=== PATIENT | female | born 1965 | race Caucasian/White ===

== ENCOUNTER 2017-02-03 13:13 | Emergency (ER) | payer MEDICAID ==
[~2017-02-03] VITALS: Ht 172.7 cm; Wt 81.0 kg
[~2017-02-03 13:13] MED LIST: DICY20TA11 PO; FURO40TA5 PO; LEVE1000 PO; LORA0.5T2 PO; LOSA25TA3 PO; TRAM50TA3 PO
[2017-02-03] MEDS ORDERED: BACITRACIN ZINC OINT UDPKT TOP ONE (15:15)
[2017-02-03] MEDS ORDERED: LIDOCAINE HCL 1% 20ML VIAL (Pyxis) INJ MC ONE (15:15)
[2017-02-03] MEDS ORDERED: ACETAMINOPHEN 325MG TABLET PO ONE (15:45)
[2017-02-03 15:47] VITALS: BP 152/83
== END 2017-02-03 16:25 | disposition home or self-care (01) ==
LOC: ER 14:29
DX: L02.416 Cutaneous abscess of left lower limb (principal); K21.9 Gastro-esophageal reflux disease without esophagitis; I10 Essential (primary) hypertension; Z88.5 Allergy status to narcotic agent; Z79.899 Other long term (current) drug therapy; Z90.49 Acquired absence of other specified parts of digestive tract; Z98.51 Tubal ligation status
CPT/HCPCS: 10060; 99283; J3490; X7700; Z7610

== ENCOUNTER 2017-06-04 04:42 | Inpatient (IN) | payer MEDICAID ==
[~2017-06-04] VITALS: Ht 154.9 cm; Wt 102.1 kg
[2017-06-04] MEDS ORDERED: NITROGLYCERIN OINT 1GM/INCH UDPKT TD STA (05:10)
[2017-06-04 05:30] LABS: BASOPHILS % 0.1 % (0.0-2.0); EOSINOPHILS % 1.1 % (0.0-5.0); HEMATOCRIT. 37.6 % (36.0-48.0); HEMOGLOBIN. 12.9 g/dL (12.0-16.0); LYMPHOCYTES % 26.1 % (20.0-50.0); MEAN CORPUSCULAR HEMOGLOBIN 30.2 pg (28.0-32.0); MEAN CORPUSCULAR VOLUME 88.1 fL (81.0-99.0); MEAN PLATELET VOLUME 7.3 fl (7.4-10.4); MONOCYTES % 6.2 % (2.0-8.0); NEUTROPHILS % 66.5 % (40.0-76.0); PLATELET 64 x1000/uL (130-400); RED BLOOD CELL COUNT 4.27 mill/uL (4.2-5.4); RED CELL DISTRIBUTION WIDTH 14.2 % (11.6-14.6)
[2017-06-04 05:43] LABS: CARBON DIOXIDE 26 mEq/L (21-32); CHLORIDE 110 mEq/L (98-107); TROPONIN I < 0.02 ng/mL (0.00-0.04)
[2017-06-04] MEDS ORDERED: ONDANSETRON HCL 4MG/2ML VIAL IV ONE (05:45)
[2017-06-04] MEDS ORDERED: ACETAMINOPHEN 325MG TABLET PO ONE (08:30)
[2017-06-04] MEDS ORDERED: POTASSIUM CHLORIDE 20MEQ TABLET SR PO ONE (08:30)
[2017-06-04 12:00] VITALS: BP 142/79
[2017-06-04 12:30] VITALS: BP 142/79
[2017-06-04] MEDS ORDERED: LORAZEPAM 0.5MG TABLET PO PRN (12:30)
[2017-06-04] MEDS: LOSARTAN POTASSIUM 25 MG TABLET PO SCH (12:58)
[2017-06-04] MEDS: LEVETIRACETAM 500MG TABLET PO SCH ×2 (12:58→21:22)
[2017-06-04] MEDS: DICYCLOMINE HCL 20MG TABLET PO SCH ×2 (13:17→17:28)
[2017-06-04 15:11] LABS: CREATINE KINASE 78 IU/L (26-192); CREATINE KINASE MB FRACTION 0.5 ng/mL (0.5-3.6); TROPONIN I < 0.02 ng/mL (0.00-0.04)
[2017-06-04] MEDS: TRAMADOL 50MG TABLET PO PRN (15:41)
[2017-06-04 16:54] VITALS: BP 103/44
[2017-06-04] MEDS ORDERED: MEDICATION NOT ON FORMULARY EA (Levetiracetam (Keppra) 1 TAB) PO SCH (17:00)
[2017-06-04] MEDS: KETOROLAC 30MG/ML VIAL IM SCH (17:39)
[2017-06-04] MEDS ORDERED: CLONIDINE 0.2MG TABLET PO PRN ×2 (18:30)
[2017-06-04] MEDS ORDERED: SUMATRIPTAN SUCCINATE 6MG/0.5ML VIAL SUBCUT NR (18:30)
[2017-06-04 20:00] VITALS: BP 119/64
[2017-06-04 22:53] LABS: CREATINE KINASE 71 IU/L (26-192); CREATINE KINASE MB FRACTION < 0.5 ng/mL (0.5-3.6); TROPONIN I < 0.02 ng/mL (0.00-0.04)
[2017-06-05] VITALS: BP 125/60
[2017-06-05] MEDS: KETOROLAC 30MG/ML VIAL IM SCH ×2 (01:30→09:15)
[2017-06-05 04:00] VITALS: BP 114/61
[2017-06-05] MEDS: TRAMADOL 50MG TABLET PO PRN ×2 (04:21→18:44)
[2017-06-05 06:04] LABS: HEMATOCRIT 36.7 % (36.0-48.0); HEMOGLOBIN 12.7 g/dL (12.0-16.0); MEAN CORPUSCULAR HEMOGLOBIN 30.6 pg (28.0-32.0); MEAN CORPUSCULAR VOLUME 88.5 fL (81.0-99.0); PLATELET 70 x1000/uL (130-400); RED BLOOD CELL COUNT 4.14 mill/uL (4.2-5.4); RED CELL DISTRIBUTION WIDTH 14.6 % (11.6-14.6)
[2017-06-05 06:27] LABS: CARBON DIOXIDE 25 mEq/L (21-32); CHLORIDE 110 mEq/L (98-107); CREATINE KINASE 63 IU/L (26-192); LDL CHOLESTEROL 109 mg/dL (5-100)
[2017-06-05 06:35] LABS: CREATINE KINASE MB FRACTION < 0.5 ng/mL (0.5-3.6); HDL CHOLESTEROL 70 mg/dL (40-59); TROPONIN I < 0.02 ng/mL (0.00-0.04)
[2017-06-05 08:00] VITALS: BP 117/68
[2017-06-05] MEDS ORDERED: ASPIRIN 81MG TABLET PO SCH (09:00)
[2017-06-05] MEDS: LOSARTAN POTASSIUM 25 MG TABLET PO SCH (09:14)
[2017-06-05] MEDS: FUROSEMIDE 40MG TABLET PO SCH (09:14)
[2017-06-05] MEDS: LEVETIRACETAM 500MG TABLET PO SCH ×2 (09:14→21:23)
[2017-06-05] MEDS: DICYCLOMINE HCL 20MG TABLET PO SCH ×3 (09:15→17:36)
[2017-06-05] MEDS ORDERED: POTASSIUM CHLORIDE 20MEQ TABLET SR PO NR (09:38)
[2017-06-05 12:00] VITALS: BP 112/63
[2017-06-05 17:28] VITALS: BP 110/61
[2017-06-05 19:04] LABS: *AMPHETAMINES SCREEN URINE NEGATIVE (NEGATIVE); *BARBITURATES SCREEN URINE NEGATIVE (NEGATIVE); *BENZODIAZEPINES SCREEN URINE NEGATIVE (NEGATIVE); *COCAINE SCREEN URINE NEGATIVE (NEGATIVE); CANNABINOID URINE SCREEN NEGATIVE (NEGATIVE); METHADONE URINE SCREEN NEGATIVE (NEGATIVE); OPIATES URINE SCREEN NEGATIVE (NEGATIVE); PHENCYCLIDINE URINE SCREEN NEGATIVE (NEGATIVE)
[2017-06-05 20:00] VITALS: BP 139/60
[2017-06-06] VITALS: BP 116/60
[2017-06-06 04:00] VITALS: BP 114/54
[2017-06-06 05:20] LABS: BASOPHILS % 0.2 % (0.0-2.0); EOSINOPHILS % 1.4 % (0.0-5.0); HEMATOCRIT. 37.9 % (36.0-48.0); HEMOGLOBIN. 13.1 g/dL (12.0-16.0); LYMPHOCYTES % 23.2 % (20.0-50.0); MEAN CORPUSCULAR HEMOGLOBIN 30.3 pg (28.0-32.0); MEAN CORPUSCULAR VOLUME 87.7 fL (81.0-99.0); MEAN PLATELET VOLUME 7.9 fl (7.4-10.4); MONOCYTES % 5.5 % (2.0-8.0); NEUTROPHILS % 69.7 % (40.0-76.0); PLATELET 73 x1000/uL (130-400); RED BLOOD CELL COUNT 4.32 mill/uL (4.2-5.4); RED CELL DISTRIBUTION WIDTH 14.4 % (11.6-14.6)
[2017-06-06 05:59] LABS: CARBON DIOXIDE 28 mEq/L (21-32); CHLORIDE 108 mEq/L (98-107)
[2017-06-06 08:00] VITALS: BP 119/60
[2017-06-06] MEDS: LEVETIRACETAM 500MG TABLET PO SCH ×2 (08:26→21:25)
[2017-06-06] MEDS: LOSARTAN POTASSIUM 25 MG TABLET PO SCH (08:27)
[2017-06-06] MEDS: DICYCLOMINE HCL 20MG TABLET PO SCH ×3 (08:27→17:00)
[2017-06-06] MEDS: TRAMADOL 50MG TABLET PO PRN (08:27)
[2017-06-06] MEDS: FUROSEMIDE 40MG TABLET PO SCH (08:27)
[2017-06-06 12:00] VITALS: BP 119/70
[2017-06-06] MEDS ORDERED: ONDANSETRON HCL 4MG/2ML VIAL IV PRN (14:15)
[2017-06-06] MEDS ORDERED: MORPHINE SULFATE 2 MG/ML CPJ (NOT FOR IM USE) IV PRN (14:15)
[2017-06-06] MEDS ORDERED: DIPHENHYDRAMINE 50MG/ML VIAL IM PRN (14:30)
[2017-06-06] MEDS ORDERED: SUMATRIPTAN SUCCINATE 6MG/0.5ML VIAL SUBCUT NR ×2 (15:30→16:30)
[2017-06-06 16:00] VITALS: BP 109/59
[2017-06-06 20:00] VITALS: BP 104/49
[2017-06-06] MEDS: AMITRIPTYLINE 25MG TABLET PO SCH (21:25)
[2017-06-07] VITALS: BP 120/54
[2017-06-07 04:00] VITALS: BP 118/60
[2017-06-07 08:00] VITALS: BP 130/63
[2017-06-07] MEDS: LEVETIRACETAM 500MG TABLET PO SCH ×2 (08:53→21:32)
[2017-06-07] MEDS: LOSARTAN POTASSIUM 25 MG TABLET PO SCH (08:53)
[2017-06-07] MEDS: DICYCLOMINE HCL 20MG TABLET PO SCH ×3 (08:53→16:33)
[2017-06-07] MEDS: FUROSEMIDE 40MG TABLET PO SCH (08:53)
[2017-06-07 12:00] VITALS: BP 112/67
[2017-06-07] MEDS ORDERED: REGADENOSON 0.4 MG/5 ML IV ONE (13:30)
[2017-06-07 15:46] VITALS: BP 117/62
[2017-06-07 20:00] VITALS: BP 117/51
[2017-06-07] MEDS: AMITRIPTYLINE 25MG TABLET PO SCH (21:31)
[2017-06-08] VITALS: BP 118/53
[2017-06-08 05:45] LABS: BASOPHILS % 0.4 % (0.0-2.0); EOSINOPHILS % 1.2 % (0.0-5.0); HEMATOCRIT. 40.7 % (36.0-48.0); HEMOGLOBIN. 14.1 g/dL (12.0-16.0); LYMPHOCYTES % 26.5 % (20.0-50.0); MEAN CORPUSCULAR VOLUME 89.4 fL (81.0-99.0); MEAN PLATELET VOLUME 8.1 fl (7.4-10.4); MONOCYTES % 8.7 % (2.0-8.0); NEUTROPHILS % 63.2 % (40.0-76.0); PLATELET 69 x1000/uL (130-400); RED BLOOD CELL COUNT 4.55 mill/uL (4.2-5.4); RED CELL DISTRIBUTION WIDTH 14.2 % (11.6-14.6)
[2017-06-08 07:23] LABS: CARBON DIOXIDE 28 mEq/L (21-32); CHLORIDE 107 mEq/L (98-107)
[2017-06-08 07:41] VITALS: BP 133/95
[2017-06-08] MEDS ORDERED: CLONIDINE 0.1MG TABLET PO PRN (08:01)
[2017-06-08] MEDS ORDERED: REGADENOSON 0.4 MG/5 ML IV ONE (08:16)
[2017-06-08] MEDS: LOSARTAN POTASSIUM 25 MG TABLET PO SCH (09:31)
[2017-06-08] MEDS: LEVETIRACETAM 500MG TABLET PO SCH (09:31)
[2017-06-08] MEDS: FUROSEMIDE 40MG TABLET PO SCH (09:31)
[2017-06-08] MEDS: TRAMADOL 50MG TABLET PO PRN (09:32)
[2017-06-08] MEDS: DICYCLOMINE HCL 20MG TABLET PO SCH ×2 (09:32→13:02)
[2017-06-08 12:00] VITALS: BP 121/60
[2017-06-08 15:43] VITALS: BP 131/62
[2017-06-08 15:55] VITALS: BP 131/62
== END 2017-06-08 16:25 | disposition home or self-care (01) | DRG 199 ==
LOC: ER 04:42 → 7WST 06:06 → EDBEDREQ 06:27 → ENRESERV 10:54
PROVIDERS: ADMIT Internal Medicine; ATTEND Internal Medicine
DX: I16.0 Hypertensive urgency (principal); D69.6 Thrombocytopenia, unspecified; I11.9 Hypertensive heart disease without heart failure; E44.1 Mild protein-calorie malnutrition; I25.10 Atherosclerotic heart disease of native coronary artery without angina pectoris; K74.60 Unspecified cirrhosis of liver; G43.909 Migraine, unspecified, not intractable, without status migrainosus; G40.909 Epilepsy, unspecified, not intractable, without status epilepticus; B19.20 Unspecified viral hepatitis C without hepatic coma; F32.9 Major depressive disorder, single episode, unspecified; F41.9 Anxiety disorder, unspecified; E87.6 Hypokalemia; Z79.899 Other long term (current) drug therapy; Z88.6 Allergy status to analgesic agent; Z90.49 Acquired absence of other specified parts of digestive tract; M94.0 Chondrocostal junction syndrome [Tietze]
CPT/HCPCS: 36415; 70450; 71010; 78452; 80048; 80053; 80061; 80305; 82550; 82553; 83036; 84443; 84484; 85025; 85027; 85379; 93005; 93017; 93306; 93970; 96374; 99285; A9500; J1200; J1885; J2270; J2405; J2785; J3030

== ENCOUNTER 2017-08-05 10:12 | Emergency (ER) | payer MEDICAID ==
[~2017-08-05] VITALS: Ht 162.6 cm; Wt 77.0 kg
[2017-08-05] MEDS ORDERED: ENALAPRIL 2.5MG/2ML VIAL 2ML IV ONE (10:30)
[2017-08-05] MEDS ORDERED: ONDANSETRON HCL 4MG/2ML VIAL IV ONE (10:30)
[2017-08-05] MEDS ORDERED: PROPRANOLOL HCL 20MG TABLET PO ONE (10:30)
[2017-08-05 10:45] LABS: BASOPHILS % 0.2 % (0.0-2.0); EOSINOPHILS % 1.1 % (0.0-5.0); HEMATOCRIT. 40.2 % (36.0-48.0); LYMPHOCYTES % 23.8 % (20.0-50.0); MEAN CORPUSCULAR HEMOGLOBIN 31.7 pg (28.0-32.0); MEAN CORPUSCULAR VOLUME 90.8 fL (81.0-99.0); MONOCYTES % 6.7 % (2.0-8.0); NEUTROPHILS % 68.2 % (40.0-76.0); PLATELET 72 x1000/uL (130-400); RED BLOOD CELL COUNT 4.42 mill/uL (4.2-5.4); RED CELL DISTRIBUTION WIDTH 15.2 % (11.6-14.6)
[2017-08-05 10:53] LABS: INR 1.1; PARTIAL THROMBOPLASTIN TIME 28.9 sec (23.4-31.0); PROTHROMBIN TIME 11.7 sec (9.4-11.6)
[2017-08-05 11:03] LABS: CARBON DIOXIDE 30 mEq/L (21-32); CHLORIDE 112 mEq/L (98-107); CREATINE KINASE MB FRACTION 1.1 ng/mL (0.5-3.6); TROPONIN I < 0.02 ng/mL (0.00-0.04)
[2017-08-05] MEDS ORDERED: SODIUM CHLORIDE 0.9% 500 ML IV ONE (11:17)
[2017-08-05] MEDS ORDERED: MECLIZINE 25MG TABLET PO ONE (11:30)
[2017-08-05] MEDS ORDERED: DEXAMETHASONE 10 MG/ML VIAL IV ONE (11:30)
[2017-08-05 12:24] VITALS: BP 116/66
== END 2017-08-05 12:44 | disposition home or self-care (01) ==
LOC: ER 10:12
DX: I10 Essential (primary) hypertension (principal); Z88.5 Allergy status to narcotic agent
CPT/HCPCS: 36415; 70450; 71010; 80053; 82553; 83735; 83880; 84484; 85025; 85610; 85730; 93005; 96361; 96374; 96375; 99285; J1100; J2405; J7030; J7040; Z7610; J8597

== ENCOUNTER 2017-10-16 14:12 | Emergency (ER) | payer MEDICAID ==
[~2017-10-16] VITALS: Ht 154.9 cm; Wt 115.0 kg
[2017-10-16] MEDS ORDERED: SODIUM CHLORIDE 0.9% 1,000 ML IV ONE (17:55)
[2017-10-16] MEDS ORDERED: KETOROLAC 30MG/ML VIAL IV STA (17:55)
[2017-10-16 18:52] LABS: BASOPHILS % 0.5 % (0.0-2.0); HEMATOCRIT. 42.2 % (36.0-48.0); HEMOGLOBIN. 14.2 g/dL (12.0-16.0); INR 1.1; LYMPHOCYTES % 28.5 % (20.0-50.0); MEAN CORPUSCULAR HEMOGLOBIN 30.9 pg (28.0-32.0); MEAN CORPUSCULAR VOLUME 91.6 fL (81.0-99.0); MEAN PLATELET VOLUME 7.9 fl (7.4-10.4); MONOCYTES % 6.7 % (2.0-8.0); NEUTROPHILS % 63.3 % (40.0-76.0); PLATELET 95 x1000/uL (130-400); PROTHROMBIN TIME 11.8 sec (9.4-11.6); RED BLOOD CELL COUNT 4.61 mill/uL (4.2-5.4); RED CELL DISTRIBUTION WIDTH 14.7 % (11.6-14.6)
[2017-10-16 18:55] LABS: HCG SCREEN NEGATIVE
[2017-10-16 19:08] LABS: CARBON DIOXIDE 28 mEq/L (21-32); CHLORIDE 111 mEq/L (98-107)
[2017-10-16 19:58] LABS: CLARITY URINE CLOUDY (CLEAR); COLOR URINE DARK YELLOW (YELLOW); KETONES URINE TRACE (NEGATIVE); LEUKOCYTE ESTERASE URINE TRACE (NEGATIVE); NITRITE URINE NEGATIVE (NEGATIVE); OCCULT BLOOD URINE NEGATIVE (NEGATIVE); PROTEIN URINE NEGATIVE (NEGATIVE); SPECIFIC GRAVITY URINE 1.032 (1.005-1.030)
[2017-10-16] MEDS ORDERED: KETOROLAC 30MG/ML VIAL IV NR (22:15)
[2017-10-16 22:50] VITALS: BP 160/77
== END 2017-10-16 23:21 | disposition home or self-care (01) ==
LOC: ER 15:59
DX: R10.11 Right upper quadrant pain (principal); R11.0 Nausea; Z88.5 Allergy status to narcotic agent
CPT/HCPCS: 36415; 76705; 80053; 81001; 83690; 84703; 85025; 85610; 96374; 99285; J1885; J7030; Z7610

== ENCOUNTER 2018-04-04 20:21 | Emergency (ER) | payer MEDICAID ==
[~2018-04-04] VITALS: Ht 157.5 cm; Wt 114.0 kg
[2018-04-04] MEDS ORDERED: PROCHLORPERAZINE 10MG/2ML VIAL IV ONE (22:30)
[2018-04-04] MEDS ORDERED: DEXAMETHASONE 10 MG/ML VIAL IV ONE (22:30)
[2018-04-04] MEDS ORDERED: KETOROLAC 30MG/ML VIAL IV ONE (22:30)
[2018-04-04] MEDS ORDERED: LORAZEPAM 2MG/ML CPJ IV ONE (22:30)
[2018-04-04] MEDS ORDERED: DIPHENHYDRAMINE 50MG/ML VIAL IV ONE (22:30)
[2018-04-04 22:51] LABS: HEMATOCRIT 40.8 % (36.0-48.0); HEMOGLOBIN 14.2 g/dL (12.0-16.0); MEAN CORPUSCULAR VOLUME 88.8 fL (81.0-99.0); PLATELET 83 x1000/uL (130-400); RED CELL DISTRIBUTION WIDTH 14.4 % (11.6-14.6)
[2018-04-04 22:53] LABS: CHLORIDE 113 mEq/L (98-107)
[2018-04-05] MEDS ORDERED: POTASSIUM CHLORIDE 20MEQ TABLET SR PO NR (00:45)
[2018-04-05 01:12] VITALS: BP 141/80
== END 2018-04-05 01:37 | disposition home or self-care (01) ==
LOC: ER 20:49
DX: R51 Headache (principal); R56.9 Unspecified convulsions; I10 Essential (primary) hypertension; F99 Mental disorder, not otherwise specified; Z88.6 Allergy status to analgesic agent; Z79.899 Other long term (current) drug therapy; Z98.51 Tubal ligation status; Z90.49 Acquired absence of other specified parts of digestive tract
CPT/HCPCS: 36415; 70450; 80053; 82542; 85027; 96374; 96375; 99285; J0780; J1100; J1200; J1885; J2060

== ENCOUNTER 2018-10-27 18:17 | Emergency (ER) | payer MEDICAID ==
[~2018-10-27] VITALS: Ht 154.9 cm; Wt 110.0 kg
[2018-10-27 20:17] LABS: CLARITY URINE CLEAR (CLEAR); COLOR URINE DARK YELLOW (YELLOW); KETONES URINE TRACE (NEGATIVE); LEUKOCYTE ESTERASE URINE TRACE (NEGATIVE); NITRITE URINE NEGATIVE (NEGATIVE); OCCULT BLOOD URINE 3+ (NEGATIVE); PH URINE 5.5 (4.5-8.0); PROTEIN URINE NEGATIVE (NEGATIVE); SPECIFIC GRAVITY URINE 1.027 (1.005-1.030)
[2018-10-27] MEDS ORDERED: ONDANSETRON 4MG ODT PO STA (20:35)
[2018-10-27] MEDS ORDERED: KETOROLAC 30MG/ML VIAL IM ONE (20:45)
[2018-10-27] MEDS ORDERED: ONDANSETRON 4MG ODT PO ONE (20:45)
[2018-10-27 21:58] LABS: BASOPHILS % 0.1 % (0.0-2.0); EOSINOPHILS % 0.8 % (0.0-5.0); HEMATOCRIT. 42.3 % (36.0-48.0); HEMOGLOBIN. 14.4 g/dL (12.0-16.0); LYMPHOCYTES % 19.8 % (20.0-50.0); MEAN CORPUSCULAR HEMOGLOBIN 31.2 pg (28.0-32.0); MEAN CORPUSCULAR VOLUME 91.5 fL (81.0-99.0); MEAN PLATELET VOLUME 7.4 fl (7.4-10.4); MONOCYTES % 6.2 % (2.0-8.0); NEUTROPHILS % 73.1 % (40.0-76.0); PLATELET 93 x1000/uL (130-400); RED BLOOD CELL COUNT 4.62 mill/uL (4.2-5.4); RED CELL DISTRIBUTION WIDTH 15.1 % (11.6-14.6)
[2018-10-27 22:01] LABS: CHLORIDE 114 mEq/L (98-107)
[2018-10-27 23:31] VITALS: BP 125/62
== END 2018-10-27 23:37 | disposition home or self-care (01) ==
LOC: ER 18:17
DX: N30.00 Acute cystitis without hematuria (principal); R10.9 Unspecified abdominal pain; E78.00 Pure hypercholesterolemia, unspecified; I10 Essential (primary) hypertension; R56.9 Unspecified convulsions; Z88.5 Allergy status to narcotic agent; Z90.49 Acquired absence of other specified parts of digestive tract
CPT/HCPCS: 36415; 71045; 74176; 80053; 81003; 83690; 85025; 96372; 99284; J1885; Q0162

== ENCOUNTER 2019-01-14 22:35 | Emergency (ER) | payer MEDICAID ==
[~2019-01-14] VITALS: Ht 167.6 cm; Wt 82.0 kg
[2019-01-14] MEDS ORDERED: LEVETIRACETAM 500MG TABLET PO ONE (23:15)
[2019-01-14] MEDS ORDERED: BUTALBITAL/ACETAMINOPHEN/CAFFEINE 50/325/40MG TABLET PO ONE (23:15)
[2019-01-14] MEDS ORDERED: KETOROLAC 30MG/ML VIAL IV ONE (23:15)
[2019-01-14] MEDS ORDERED: METOCLOPRAMIDE HCL 10MG/2ML VIAL IV ONE (23:15)
[2019-01-15 02:00] VITALS: BP 136/70
== END 2019-01-15 02:04 | disposition home or self-care (01) ==
LOC: ER 23:20
DX: R51 Headache (principal); R53.1 Weakness; I10 Essential (primary) hypertension; Z79.899 Other long term (current) drug therapy; Z88.6 Allergy status to analgesic agent
CPT/HCPCS: 96374; 96375; 99283; J1885; J2765

== ENCOUNTER 2019-06-12 17:04 | Emergency (ER) | payer MEDICAID, OTHER ==
[~2019-06-12] VITALS: Ht 167.6 cm; Wt 130.0 kg
[2019-06-12] MEDS ORDERED: SODIUM CHLORIDE 0.9% 1,000 ML IV ONE (20:15)
[2019-06-12 20:40] LABS: CLARITY URINE CLOUDY (CLEAR); COLOR URINE DARK YELLOW (YELLOW); KETONES URINE TRACE (NEGATIVE); LEUKOCYTE ESTERASE URINE 1+ (NEGATIVE); NITRITE URINE NEGATIVE (NEGATIVE); OCCULT BLOOD URINE 3+ (NEGATIVE); PROTEIN URINE 2+ (NEGATIVE); SPECIFIC GRAVITY URINE 1.031 (1.005-1.030)
[2019-06-12 21:22] LABS: BASOPHILS % 0.1 % (0.0-2.0); EOSINOPHILS % 0.7 % (0.0-5.0); HEMATOCRIT. 40.8 % (36.0-48.0); HEMOGLOBIN. 14.3 g/dL (12.0-16.0); MEAN CORPUSCULAR HEMOGLOBIN 32.2 pg (28.0-32.0); MEAN CORPUSCULAR VOLUME 92.1 fL (81.0-99.0); MEAN PLATELET VOLUME 7.5 fl (7.4-10.4); MONOCYTES % 6.1 % (2.0-8.0); NEUTROPHILS % 76.1 % (40.0-76.0); PLATELET 79 x1000/uL (130-400); RED BLOOD CELL COUNT 4.44 mill/uL (4.2-5.4); RED CELL DISTRIBUTION WIDTH 14.8 % (11.6-14.6)
[2019-06-12 21:26] LABS: CHLORIDE 113 mEq/L (98-107)
[2019-06-12 23:06] VITALS: BP 156/66
== END 2019-06-12 23:47 | disposition home or self-care (01) ==
LOC: ER 17:04
DX: N93.8 Other specified abnormal uterine and vaginal bleeding (principal); N39.0 Urinary tract infection, site not specified; D69.6 Thrombocytopenia, unspecified; K74.69 Other cirrhosis of liver; G40.909 Epilepsy, unspecified, not intractable, without status epilepticus; I10 Essential (primary) hypertension; Z88.5 Allergy status to narcotic agent
CPT/HCPCS: 36415; 76830; 76856; 80053; 81003; 81025; 85025; 86850; 86900; 86901; 99284; J7030; Z7610

== ENCOUNTER 2021-04-07 15:11 | Emergency (ER) | payer MEDICAID ==
[~2021-04-07] VITALS: Ht 172.7 cm; Wt 116.0 kg
[2021-04-07] MEDS ORDERED: FUROSEMIDE 20MG/2ML VIAL IVP ONE (17:00)
[2021-04-07] MEDS ORDERED: CEPHALEXIN 250MG CAPSULE PO ONE (17:00)
[2021-04-07 17:14] LABS: BASOPHILS % 0.1 % (0.0-2.0); EOSINOPHILS % 0.3 % (0.0-5.0); HEMATOCRIT. 40.2 % (36.0-48.0); HEMOGLOBIN. 14.3 g/dL (12.0-16.0); LYMPHOCYTES % 7.8 % (20.0-50.0); MEAN CORPUSCULAR HEMOGLOBIN 31.5 pg (28.0-32.0); MEAN CORPUSCULAR VOLUME 88.8 fL (81.0-99.0); MEAN PLATELET VOLUME 7.3 fl (7.4-10.4); MONOCYTES % 5.7 % (2.0-8.0); NEUTROPHILS % 86.1 % (40.0-76.0); PLATELET 102 x1000/uL (130-400); RED BLOOD CELL COUNT 4.52 mill/uL (4.2-5.4); RED CELL DISTRIBUTION WIDTH 14.4 % (11.6-14.6)
[2021-04-07 17:22] LABS: CHLORIDE 109 mEq/L (98-107)
[2021-04-07 17:33] LABS: CLARITY URINE CLOUDY (CLEAR); COLOR URINE YELLOW (YELLOW); KETONES URINE NEGATIVE (NEGATIVE); LEUKOCYTE ESTERASE URINE NEGATIVE (NEGATIVE); NITRITE URINE NEGATIVE (NEGATIVE); OCCULT BLOOD URINE 1+ (NEGATIVE); PROTEIN URINE NEGATIVE (NEGATIVE); SPECIFIC GRAVITY URINE 1.015 (1.005-1.030)
[2021-04-07] MEDS ORDERED: CEPH500T MT (21:58)
[2021-04-07 23:00] VITALS: BP 136/76
[2021-04-07] MEDS ORDERED: ACETAMINOPHEN 325MG TABLET PO ONE (23:00)
== END 2021-04-08 00:35 | disposition home or self-care (01) ==
LOC: ER 15:11
DX: L03.116 Cellulitis of left lower limb (principal); L03.115 Cellulitis of right lower limb; I10 Essential (primary) hypertension; Z79.899 Other long term (current) drug therapy
CPT/HCPCS: 36415; 71045; 80053; 81003; 81025; 83880; 84484; 85025; 96374; 99284; J1940; A4315

== ENCOUNTER 2022-05-21 03:10 | Emergency (ER) | payer MEDICAID ==
[~2022-05-21 03:10] MED LIST changes: +CEPH500T MT; -DICY20TA11 PO; +DICY20TA2 PO
[2022-05-21] MEDS ORDERED: ONDANSETRON HCL 4MG/2ML INJ ONE (09:21)
[2022-05-21] MEDS ORDERED: FAMOTIDINE 20MG/2ML VIAL IV ONE (09:24)
[2022-05-21 13:06] LABS: BASOPHILS % 0.2 % (0.0-2.0); EOSINOPHILS % 1.1 % (0.0-5.0); HEMATOCRIT. 34.6 % (36.0-48.0); HEMOGLOBIN. 11.9 g/dL (12.0-16.0); LYMPHOCYTES % 22.1 % (20.0-50.0); MEAN CORPUSCULAR HEMOGLOBIN 30.9 pg (28.0-32.0); MEAN CORPUSCULAR VOLUME 89.9 fL (81.0-99.0); MEAN PLATELET VOLUME 7.2 fl (7.4-10.4); NEUTROPHILS % 68.6 % (40.0-76.0); PLATELET 89 x1000/uL (130-400); RED BLOOD CELL COUNT 3.84 mill/uL (4.2-5.4); RED CELL DISTRIBUTION WIDTH 14.9 % (11.6-14.6)
[2022-05-21 13:38] LABS: CHLORIDE 115 mEq/L (98-107)
== END 2022-05-21 14:53 | disposition home or self-care (01) ==
LOC: ER 03:10
DX: R10.9 Unspecified abdominal pain (principal); R55 Syncope and collapse; I10 Essential (primary) hypertension; R56.9 Unspecified convulsions; Z88.6 Allergy status to analgesic agent
CPT/HCPCS: 36415; 74176; 80053; 83690; 85025; 96374; 99284; J2405; J3490

== ENCOUNTER 2022-10-31 01:14 | Inpatient (IN) | payer MEDICARE, MEDICAID ==
[~2022-10-31] VITALS: Ht 152.4 cm; Wt 127.0 kg
[2022-10-31] MEDS ORDERED: PANTOPRAZOLE 40MG DR TABLET PO ONE (03:45)
[2022-10-31] MEDS ORDERED: HYDROCODONE/ACETAMINOPHEN 5/325MG TABLET PO ONE (03:45)
[2022-10-31 04:11] LABS: BASOPHILS % 0.2 % (0.0-2.0); EOSINOPHILS % 0.7 % (0.0-5.0); HEMATOCRIT. 36.9 % (36.0-48.0); HEMOGLOBIN. 12.9 g/dL (12.0-16.0); LYMPHOCYTES % 13.6 % (20.0-50.0); MEAN CORPUSCULAR HEMOGLOBIN 30.6 pg (28.0-32.0); MEAN CORPUSCULAR VOLUME 87.7 fL (81.0-99.0); MEAN PLATELET VOLUME 7.1 fl (7.4-10.4); MONOCYTES % 5.1 % (2.0-8.0); NEUTROPHILS % 80.4 % (40.0-76.0); PLATELET 94 x1000/uL (130-400); RED CELL DISTRIBUTION WIDTH 14.3 % (11.6-14.6)
[2022-10-31 04:16] LABS: CHLORIDE 112 mEq/L (98-107)
[2022-10-31] MEDS ORDERED: PROT20 MT (05:56)
[2022-10-31 08:00] VITALS: BP 148/76
[2022-10-31] MEDS ORDERED: POTASSIUM CHLORIDE 20MEQ TABLET SR PO NR (08:45)
[2022-10-31] MEDS: ACETAMINOPHEN 325MG TABLET PO PRN (10:57)
[2022-10-31 11:35] LABS: HEMATOCRIT 34.6 % (36.0-48.0); HEMOGLOBIN 11.6 g/dL (12.0-16.0)
[2022-10-31 12:00] VITALS: BP 123/58
[2022-10-31 16:00] VITALS: BP 98/35
[2022-10-31] MEDS ORDERED: LORAZEPAM 2MG/ML CPJ IV PRN (20:00)
[2022-10-31] MEDS ORDERED: NALOXONE HCL 0.4MG/ML VIAL IV PRN (20:45)
[2022-10-31] MEDS: PANTOPRAZOLE SODIUM 40 MG/VIAL IV SCH ×2 (21:00→21:35)
[2022-10-31] MEDS: LEVETIRACETAM 500MG TABLET PO SCH (21:35)
[2022-11-01 04:00] VITALS: BP 127/64
[2022-11-01] MEDS: ACETAMINOPHEN 325MG TABLET PO PRN ×2 (06:18→17:24)
[2022-11-01 08:00] VITALS: BP 112/52
[2022-11-01] MEDS ORDERED: *PATIENT'S OWN MEDICATION STORAGE XX SCH (08:00)
[2022-11-01 08:12] LABS: BASOPHILS % 0.2 % (0.0-2.0); EOSINOPHILS % 0.9 % (0.0-5.0); HEMATOCRIT. 32.8 % (36.0-48.0); HEMOGLOBIN. 11.4 g/dL (12.0-16.0); LYMPHOCYTES % 25.8 % (20.0-50.0); MEAN CORPUSCULAR HEMOGLOBIN 30.8 pg (28.0-32.0); MEAN CORPUSCULAR VOLUME 88.8 fL (81.0-99.0); MEAN PLATELET VOLUME 7.5 fl (7.4-10.4); MONOCYTES % 6.7 % (2.0-8.0); NEUTROPHILS % 66.4 % (40.0-76.0); PLATELET 81 x1000/uL (130-400); RED BLOOD CELL COUNT 3.69 mill/uL (4.2-5.4); RED CELL DISTRIBUTION WIDTH 14.4 % (11.6-14.6)
[2022-11-01 08:22] LABS: CHLORIDE 113 mEq/L (98-107)
[2022-11-01] MEDS: LEVETIRACETAM 500MG TABLET PO SCH ×2 (09:35→21:34)
[2022-11-01] MEDS: PANTOPRAZOLE SODIUM 40 MG/VIAL IV SCH ×2 (09:35→21:32)
[2022-11-01 12:00] VITALS: BP 132/56
[2022-11-01] MEDS: HYDROCODONE/ACETAMINOPHEN 5/325MG TABLET PO PRN ×2 (14:43→22:05)
[2022-11-01 15:56] VITALS: BP 123/60
[2022-11-01 20:00] VITALS: BP 129/48
[2022-11-02] VITALS: BP 132/51
[2022-11-02] MEDS: HYDROCODONE/ACETAMINOPHEN 5/325MG TABLET PO PRN ×3 (04:00→21:08)
[2022-11-02 08:00] VITALS: BP 107/77
[2022-11-02] MEDS: LEVETIRACETAM 500MG TABLET PO SCH ×2 (09:00→20:57)
[2022-11-02] MEDS: PANTOPRAZOLE SODIUM 40 MG/VIAL IV SCH ×2 (09:00→20:58)
[2022-11-02] MEDS: FUROSEMIDE 40MG/4ML VIAL IVP SCH (11:15)
[2022-11-02 12:00] VITALS: BP 120/57
[2022-11-02] MEDS: FLUDROCORTISONE ACETATE 0.1MG TABLET PO SCH (12:05)
[2022-11-02 14:49] LABS: CLARITY URINE CLEAR (CLEAR); COLOR URINE YELLOW (YELLOW); KETONES URINE NEGATIVE (NEGATIVE); LEUKOCYTE ESTERASE URINE NEGATIVE (NEGATIVE); NITRITE URINE NEGATIVE (NEGATIVE); OCCULT BLOOD URINE NEGATIVE (NEGATIVE); PH URINE 5.5 (4.5-8.0); PROTEIN URINE NEGATIVE (NEGATIVE); SPECIFIC GRAVITY URINE 1.008 (1.005-1.030)
[2022-11-02 16:00] VITALS: BP 121/58
[2022-11-02 20:00] VITALS: BP 125/52
[2022-11-03] VITALS: BP 109/49
[2022-11-03] MEDS: ONDANSETRON HCL 4MG/2ML INJ IV PRN ×2 (01:39→09:04)
[2022-11-03] MEDS: ACETAMINOPHEN 325MG TABLET PO PRN ×4 (01:39→23:29)
[2022-11-03 04:00] VITALS: BP 95/48
[2022-11-03 08:00] VITALS: BP 119/58
[2022-11-03] MEDS: FLUDROCORTISONE ACETATE 0.1MG TABLET PO SCH (08:43)
[2022-11-03] MEDS: FUROSEMIDE 40MG/4ML VIAL IVP SCH (08:43)
[2022-11-03] MEDS: PANTOPRAZOLE SODIUM 40 MG/VIAL IV SCH ×2 (08:43→20:30)
[2022-11-03] MEDS: LEVETIRACETAM 500MG TABLET PO SCH ×2 (08:43→21:49)
[2022-11-03 12:00] VITALS: BP 107/46
[2022-11-03] MEDS ORDERED: LACTULOSE 20G/30ML UDC PO STA (13:18)
[2022-11-03] MEDS ORDERED: NA PHOS,M-B/NA PHOS,DI-BA ENEMA 118ML PR NR (13:30)
[2022-11-03] MEDS ORDERED: BISACODYL 10MG SUPP PR PRN (13:30)
[2022-11-03 16:00] VITALS: BP 141/48
[2022-11-03 20:00] VITALS: BP 122/53
[2022-11-03] MEDS: LACTULOSE 20G/30ML UDC PO SCH (20:28)
[2022-11-04] VITALS: BP 131/61
[2022-11-04 04:00] VITALS: BP 108/52
[2022-11-04] MEDS: LACTULOSE 20G/30ML UDC PO SCH ×2 (04:00)
[2022-11-04 08:00] VITALS: BP 139/55
[2022-11-04] MEDS: FUROSEMIDE 40MG/4ML VIAL IVP SCH (08:35)
[2022-11-04] MEDS: PANTOPRAZOLE SODIUM 40 MG/VIAL IV SCH ×2 (08:35→23:13)
[2022-11-04] MEDS: FLUDROCORTISONE ACETATE 0.1MG TABLET PO SCH (08:36)
[2022-11-04] MEDS: LEVETIRACETAM 500MG TABLET PO SCH ×2 (08:36→23:13)
[2022-11-04] MEDS ORDERED: NA PHOS,M-B/NA PHOS,DI-BA ENEMA 118ML PR PRN (09:00)
[2022-11-04] MEDS: HYDROCODONE/ACETAMINOPHEN 5/325MG TABLET PO PRN ×2 (10:58→17:03)
[2022-11-04] MEDS: ONDANSETRON HCL 4MG/2ML INJ IV PRN (10:59)
[2022-11-04] MEDS ORDERED: MIDODRINE HCL 5MG TABLET PO SCH (11:15)
[2022-11-04] MEDS ORDERED: LORAZEPAM 2MG/ML CPJ IV PRN (11:45)
[2022-11-04 12:00] VITALS: BP 102/31
[2022-11-04] MEDS: MIDODRINE HCL 5MG TABLET PO SCH ×2 (13:00→17:00)
[2022-11-04 16:00] VITALS: BP 119/47
[2022-11-04 20:00] VITALS: BP 121/44
[2022-11-04] MEDS ORDERED: NAPROXEN 250MG TABLET PO PRN (21:15)
[2022-11-05 02:55] VITALS: BP 99/33
[2022-11-05 04:00] VITALS: BP 111/54
[2022-11-05 08:00] VITALS: BP 111/43
[2022-11-05] MEDS: MIDODRINE HCL 5MG TABLET PO SCH ×3 (09:00→18:13)
[2022-11-05] MEDS: FUROSEMIDE 40MG/4ML VIAL IVP SCH (09:00)
[2022-11-05] MEDS: ZONISAMIDE 100MG CAPSULE PO SCH (09:00)
[2022-11-05] MEDS: PANTOPRAZOLE SODIUM 40 MG/VIAL IV SCH ×2 (09:00→20:44)
[2022-11-05] MEDS: LEVETIRACETAM 500MG TABLET PO SCH ×2 (09:01→20:28)
[2022-11-05] MEDS: DIVALPROEX SODIUM 500MG DR TABLET PO SCH ×2 (09:01→20:28)
[2022-11-05] MEDS: FLUDROCORTISONE ACETATE 0.1MG TABLET PO SCH (09:01)
[2022-11-05] MEDS: ACETAMINOPHEN 325MG TABLET PO PRN (10:36)
[2022-11-05 12:00] VITALS: BP 117/57
[2022-11-05] MEDS: HYDROCODONE/ACETAMINOPHEN 5/325MG TABLET PO PRN ×2 (13:50→20:36)
[2022-11-05 16:00] VITALS: BP 104/32
[2022-11-05 17:59] LABS: BASOPHILS % 0.4 % (0.0-2.0); CHLORIDE 105 mEq/L (98-107); EOSINOPHILS % 1.7 % (0.0-5.0); HEMATOCRIT. 36.3 % (36.0-48.0); HEMOGLOBIN. 12.4 g/dL (12.0-16.0); LYMPHOCYTES % 23.3 % (20.0-50.0); MEAN CORPUSCULAR HEMOGLOBIN 30.3 pg (28.0-32.0); MEAN CORPUSCULAR VOLUME 88.5 fL (81.0-99.0); MEAN PLATELET VOLUME 7.8 fl (7.4-10.4); MONOCYTES % 8.7 % (2.0-8.0); NEUTROPHILS % 65.9 % (40.0-76.0); PLATELET 106 x1000/uL (130-400)
[2022-11-05 20:00] VITALS: BP 98/27
[2022-11-06] VITALS: BP 101/44
[2022-11-06 04:00] VITALS: BP 122/57
[2022-11-06 08:00] VITALS: BP 106/52
[2022-11-06 08:20] VITALS: BP 106/52
[2022-11-06] MEDS: DIVALPROEX SODIUM 500MG DR TABLET PO SCH (08:54)
[2022-11-06] MEDS: FLUDROCORTISONE ACETATE 0.1MG TABLET PO SCH (08:54)
[2022-11-06] MEDS: LEVETIRACETAM 500MG TABLET PO SCH (08:54)
[2022-11-06] MEDS: ZONISAMIDE 100MG CAPSULE PO SCH (08:55)
[2022-11-06] MEDS: FUROSEMIDE 40MG/4ML VIAL IVP SCH (09:04)
[2022-11-06] MEDS: ONDANSETRON HCL 4MG/2ML INJ IV PRN (09:04)
[2022-11-06] MEDS: MIDODRINE HCL 5MG TABLET PO SCH ×2 (09:04→14:13)
[2022-11-06] MEDS: PANTOPRAZOLE SODIUM 40 MG/VIAL IV SCH (09:04)
[2022-11-06] MEDS: ACETAMINOPHEN 325MG TABLET PO PRN (10:06)
[2022-11-06 12:00] VITALS: BP 118/59
[2022-11-06 14:54] VITALS: BP 118/59
[2022-11-07] MEDS ORDERED: ZONISAMIDE 100MG CAPSULE PO SCH (09:00)
[2022-11-12 09:07] LABS: BARBITURATE SCREEN Negative ug/mL (Cutoff:0.1); BENZODIAZEPINE SCREEN Negative ng/mL (Cutoff:20); PHENCYCLIDINE SCREEN Negative ng/mL (Cutoff:8)
== END 2022-11-06 16:28 | DRG 377 ==
LOC: ER 01:14 → 6EST 06:13 → EDBEDREQTM 06:19 → EDBEDREQ 06:19
PROVIDERS: ADMIT Internal Medicine; ATTEND Internal Medicine
DX: K92.2 Gastrointestinal hemorrhage, unspecified (principal); G93.41 Metabolic encephalopathy; Z68.43 Body mass index [BMI] 50.0-59.9, adult; G40.909 Epilepsy, unspecified, not intractable, without status epilepticus; K74.60 Unspecified cirrhosis of liver; E87.6 Hypokalemia; M25.561 Pain in right knee; I10 Essential (primary) hypertension; R04.0 Epistaxis; D69.6 Thrombocytopenia, unspecified; E66.01 Morbid (severe) obesity due to excess calories; D64.9 Anemia, unspecified; I95.1 Orthostatic hypotension; Z20.822 Contact with and (suspected) exposure to COVID-19; S82.891A Other fracture of right lower leg, initial encounter for closed fracture; G89.4 Chronic pain syndrome; R53.81 Other malaise; M17.11 Unilateral primary osteoarthritis, right knee; M48.061 Spinal stenosis, lumbar region without neurogenic claudication; Y99.0 Civilian activity done for income or pay; Z88.5 Allergy status to narcotic agent; M19.90 Unspecified osteoarthritis, unspecified site
CPT/HCPCS: 36415; 70551; 71101; 72128; 72131; 73562; 73590; 73610; 73700; 76705; 80048; 80053; 80307; 80320; 81003; 82140; 82962; 84443; 85014; 85018; 85025; 87340; 87426; 92610; 97162; 97166; 97530; 99285; C1893; C9113; J1940; J2060; J2405; G0480

== ENCOUNTER 2023-09-23 17:37 | Inpatient (IN) | payer MEDICARE, MEDICAID ==
[~2023-09-23] VITALS: Ht 154.9 cm; Wt 125.2 kg
[~2023-09-23 17:37] MED LIST changes: -CEPH500T MT; +LACT10SO7 PO; +LOSA-412 PO; -LOSA25TA3 PO; +PROT20 MT
[2023-09-23] MEDS ORDERED: LEVETIRACETAM 500MG PREMIX 100 ML IV ONE ×2 (18:00)
[2023-09-23 18:47] LABS: BASOPHILS % 0.1 % (0.0-2.0); EOSINOPHILS % 0.6 % (0.0-5.0); HEMOGLOBIN. 12.4 g/dL (12.0-16.0); MEAN CORPUSCULAR HEMOGLOBIN 28.7 pg (28.0-32.0); MEAN CORPUSCULAR HGB CONC 33.6 g/dL (31.0-37.0); MEAN CORPUSCULAR VOLUME 85.6 fL (81.0-99.0); MEAN PLATELET VOLUME 7.4 fl (7.4-10.4); MONOCYTES % 8.1 % (2.0-8.0); NEUTROPHILS % 76.2 % (40.0-76.0); PLATELET 98 x1000/uL (130-400); RED BLOOD CELL COUNT 4.32 mill/uL (4.2-5.4); RED CELL DISTRIBUTION WIDTH 15.6 % (11.6-14.6); WHITE BLOOD COUNT 4.3 x1000/uL (4.5-11.0)
[2023-09-23 19:05] LABS: AMMONIA 57 uMol/L (<32)
[2023-09-23 19:06] LABS: ALANINE AMINOTRANSFERASE 11 IU/L (10-49); ALBUMIN 3.6 g/dL (3.2-4.8); ASPARTATE AMINOTRANSFERASE 26 IU/L (<34); BILIRUBIN TOTAL 0.8 mg/dL (0.1-1.0); CALCIUM 9.3 mg/dL (8.7-10.4); CARBON DIOXIDE 27 mEq/L (21-32); CHLORIDE 111 mEq/L (98-107); CREATINE KINASE 60 IU/L (34-145); CREATININE 0.8 mg/dL (0.6-1.0); GLUCOSE 93 mg/dL (70-105); POTASSIUM 3.4 mEq/L (3.5-5.1); PROTEIN TOTAL 6.3 g/dL (6.0-8.3); SODIUM 145 mEq/L (136-145); UREA NITROGEN BLOOD 10 mg/dL (9-23)
[2023-09-23 19:15] LABS: TROPONIN I HIGH SENSITIVITY < 4 ng/L (3.0-34)
[2023-09-23 22:25] VITALS: BP 147/66; PULSE 73; RESP 20; TEMP 98.9
[2023-09-24] VITALS: BP 127/52; PULSE 67; RESP 20; TEMP 97.1
[2023-09-24] MEDS ORDERED: LORAZEPAM 4MG/ML VIAL IV PRN (00:15)
[2023-09-24] MEDS ORDERED: BROM3DRO EACHEYE (03:22)
[2023-09-24] MEDS ORDERED: ONDANSETRON PO (03:22)
[2023-09-24] MEDS ORDERED: BRIV100T PO (03:22)
[2023-09-24] MEDS ORDERED: RIFA550T PO (03:22)
[2023-09-24] MEDS ORDERED: OMEP40CA20 PO (03:22)
[2023-09-24] MEDS ORDERED: POTA-202 PO (03:22)
[2023-09-24] MEDS ORDERED: VALS80TA30 PO (03:22)
[2023-09-24 04:00] VITALS: BP 98/42; PULSE 74; RESP 20; TEMP 97.3
[2023-09-24 07:07] LABS: BASOPHILS % 0.1 % (0.0-2.0); HEMATOCRIT. 33.9 % (36.0-48.0); HEMOGLOBIN. 11.6 g/dL (12.0-16.0); LYMPHOCYTES % 22.5 % (20.0-50.0); MEAN CORPUSCULAR HEMOGLOBIN 28.9 pg (28.0-32.0); MEAN CORPUSCULAR HGB CONC 34.2 g/dL (31.0-37.0); MEAN CORPUSCULAR VOLUME 84.5 fL (81.0-99.0); MEAN PLATELET VOLUME 7.5 fl (7.4-10.4); MONOCYTES % 7.2 % (2.0-8.0); NEUTROPHILS % 69.2 % (40.0-76.0); PLATELET 97 x1000/uL (130-400); RED BLOOD CELL COUNT 4.02 mill/uL (4.2-5.4); WHITE BLOOD COUNT 3.5 x1000/uL (4.5-11.0)
[2023-09-24 08:00] VITALS: BP 134/60; PULSE 72; RESP 18; TEMP 98.1
[2023-09-24 08:09] LABS: CALCIUM 8.9 mg/dL (8.7-10.4); CARBON DIOXIDE 26 mEq/L (21-32); CHLORIDE 112 mEq/L (98-107); CREATININE 0.7 mg/dL (0.6-1.0); GLUCOSE 90 mg/dL (70-105); POTASSIUM 3.4 mEq/L (3.5-5.1); SODIUM 147 mEq/L (136-145); UREA NITROGEN BLOOD 11 mg/dL (9-23)
[2023-09-24] MEDS: AMLODIPINE 10MG TABLET PO SCH (08:37)
[2023-09-24] MEDS: LEVETIRACETAM 500MG/5ML CUP PO SCH ×2 (08:45→20:46)
[2023-09-24] MEDS ORDERED: POTASSIUM CHLORIDE 20MEQ TABLET SR PO NR (11:30)
[2023-09-24 12:00] VITALS: BP 96/45; PULSE 72; RESP 18; TEMP 97.9
[2023-09-24] MEDS ORDERED: ACETAMINOPHEN 650MG/20.3ML UDC PO PRN (13:15)
[2023-09-24 16:00] VITALS: BP 127/58; PULSE 72; RESP 18; TEMP 97.9
[2023-09-24 20:00] VITALS: BP 132/50; PULSE 72; RESP 18; TEMP 98.9
[2023-09-24] MEDS: LAMOTRIGINE 25MG TABLET PO SCH (20:46)
[2023-09-25] VITALS: BP 111/47; PULSE 60; RESP 20; TEMP 97.2
[2023-09-25 04:00] VITALS: BP 124/62; PULSE 65; RESP 18; TEMP 97.3
[2023-09-25 08:00] VITALS: BP 104/43; PULSE 65; RESP 18; TEMP 97.5
[2023-09-25] MEDS: AMLODIPINE 10MG TABLET PO SCH (08:49)
[2023-09-25] MEDS: LAMOTRIGINE 25MG TABLET PO SCH (08:54)
[2023-09-25] MEDS: LEVETIRACETAM 500MG/5ML CUP PO SCH (08:54)
[2023-09-25 11:49] VITALS: BP 124/50; PULSE 81; TEMP 96.7; O2SAT 99
[2023-09-25 12:00] VITALS: BP 124/50; PULSE 81; RESP 18; TEMP 96.7
== END 2023-09-25 13:36 | disposition home or self-care (01) | DRG 101 ==
LOC: ER 17:37 → 8WST 20:07 → EDBEDREQTM 20:23 → EDBEDREQ 20:23
PROVIDERS: ADMIT Internal Medicine; ATTEND Internal Medicine
DX: G40.909 Epilepsy, unspecified, not intractable, without status epilepticus (principal); Z68.43 Body mass index [BMI] 50.0-59.9, adult; D69.6 Thrombocytopenia, unspecified; E87.6 Hypokalemia; I10 Essential (primary) hypertension; E66.01 Morbid (severe) obesity due to excess calories; K76.0 Fatty (change of) liver, not elsewhere classified; K74.60 Unspecified cirrhosis of liver; D72.819 Decreased white blood cell count, unspecified; R32 Unspecified urinary incontinence; Z88.8 Allergy status to other drugs, medicaments and biological substances; Z79.899 Other long term (current) drug therapy
CPT/HCPCS: 36415; 71045; 80048; 80053; 82140; 82550; 83605; 84484; 85025; 93005; 99285; J1953

== ENCOUNTER 2024-02-07 20:55 | Emergency (ER) | payer MEDICARE, MEDICAID ==
[~2024-02-07] VITALS: Ht 172.7 cm; Wt 124.0 kg
[~2024-02-07 20:55] MED LIST changes: +BRIV100T PO; +BROM3DRO EACHEYE; -DICY20TA2 PO; -LOSA-412 PO; +OMEP40CA20 PO; +ONDANSETRON PO; +POTA-202 PO; +RIFA550T PO; -TRAM50TA3 PO; +VALS80TA30 PO
[2024-02-07 21:01] VITALS: O2SAT 98
[2024-02-07] MEDS ORDERED: VALA10002 MT (22:37)
[2024-02-07] MEDS ORDERED: P20 MT (22:37)
[2024-02-07] MEDS: ACETAMINOPHEN 325MG TABLET PO ONE (22:49)
[2024-02-07 22:50] VITALS: BP 149/74; PULSE 83; RESP 15; TEMP 98.6
== END 2024-02-07 22:56 | disposition home or self-care (01) ==
LOC: ER 20:55
DX: G51.0 Bell's palsy (principal); I10 Essential (primary) hypertension; Z88.6 Allergy status to analgesic agent
CPT/HCPCS: 82962; 99283

== ENCOUNTER 2025-01-12 00:17 | Emergency (ER) | payer MEDICARE, MEDICAID ==
[~2025-01-12] VITALS: Ht 162.6 cm; Wt 121.0 kg
[~2025-01-12 00:17] MED LIST changes: +GABA-1180 PO; -LORA0.5T2 PO; -OMEP40CA20 PO; -ONDANSETRON PO; -VALS80TA30 PO
[2025-01-12 00:22] VITALS: O2SAT 100
[2025-01-12 02:39] LABS: BASOPHILS % 0.6 % (0.0-2.0); HEMATOCRIT. 37.4 % (36.0-48.0); HEMOGLOBIN. 12.4 g/dL (12.0-16.0); LYMPHOCYTES % 21.5 % (20.0-50.0); MEAN CORPUSCULAR HEMOGLOBIN 27.5 pg (28.0-32.0); MEAN CORPUSCULAR HGB CONC 33.1 g/dL (31.0-37.0); MEAN CORPUSCULAR VOLUME 82.8 fL (81.0-99.0); MONOCYTES % 6.8 % (2.0-8.0); NEUTROPHILS % 69.1 % (40.0-76.0); PLATELET 116 x1000/uL (130-400); RED BLOOD CELL COUNT 4.51 mill/uL (4.2-5.4); RED CELL DISTRIBUTION WIDTH 15.7 % (11.6-14.6); WHITE BLOOD COUNT 5.2 x1000/uL (4.5-11.0)
[2025-01-12] MEDS: ONDANSETRON HCL 4MG/2ML INJ IV STA (02:42)
[2025-01-12 02:44] LABS: CARBON DIOXIDE 29 mEq/L (21-32); CHLORIDE 108 mEq/L (98-107); POTASSIUM 3.6 mEq/L (3.5-5.1); SODIUM 143 mEq/L (136-145)
[2025-01-12 02:45] LABS: CALCIUM 9.7 mg/dL (8.7-10.4)
[2025-01-12] MEDS: KETOROLAC 30MG/ML VIAL IV STA (02:49)
[2025-01-12 02:50] LABS: CREATININE 0.9 mg/dL (0.6-1.0); GLUCOSE 108 mg/dL (70-105); UREA NITROGEN BLOOD 9 mg/dL (9-23)
[2025-01-12 02:51] LABS: ALANINE AMINOTRANSFERASE 19 IU/L (10-49); ALBUMIN 3.9 g/dL (3.2-4.8); ASPARTATE AMINOTRANSFERASE 31 IU/L (<34)
[2025-01-12 02:52] LABS: BILIRUBIN DIRECT 0.2 mg/dL (<=3.0); BILIRUBIN TOTAL 0.9 mg/dL (0.1-1.0); TROPONIN I HIGH SENSITIVITY < 4 ng/L (3.0-34)
[2025-01-12 06:35] VITALS: BP 137/59; PULSE 84; RESP 12; TEMP 36.6; O2SAT 98
== END 2025-01-12 07:04 | disposition home or self-care (01) ==
LOC: ER 00:17
DX: R10.11 Right upper quadrant pain (principal); K74.60 Unspecified cirrhosis of liver; I10 Essential (primary) hypertension; J45.909 Unspecified asthma, uncomplicated; Z88.5 Allergy status to narcotic agent; Z79.899 Other long term (current) drug therapy; Z91.040 Latex allergy status; Z86.59 Personal history of other mental and behavioral disorders
CPT/HCPCS: 99285; 74176; 96374; 71045; 96375; 80076; 80048; 83605; 83690; 85025; 84484; 36415; J1885; J2405